=== PATIENT | male | born 2005 | race African-American/Black ===

== ENCOUNTER 2025-06-26 23:02 | Emergency (ER) | payer OTHER ==
[~2025-06-26 23:02] MED LIST: Ketorolac 30 MG/ML SDV IVPUSH ONE; Lactated Ringers 1,000 ML IV ONE
[2025-06-27 00:24] LABS: BASOPHILS PERCENT AUTO 1.2 % (0.0-1.0); EOSINOPHILS PERCENT AUTO 0.3 % (1.0-3.0); LYMPHOCYTES PERCENT AUTO 43.7 % (20.5-50.1); MONOCYTES PERCENT AUTO 11.4 % (2-8); NEUTROPHILS PERCENT AUTO 43.4 % (42.2-75.2); PLATELET COUNT,PLT 232 10^3/uL (150-450); RED BLOOD CELL COUNT 4.92 10^6/uL (4.6-6.2); WHITE BLOOD CELL COUNT,WBC 6.8 10^3/uL (5.0-10.0)
[2025-06-27] MEDS: Ketorolac 30 MG/ML SDV IM ONE (00:25)
[2025-06-27 00:46] LABS: A/G RATIO 1.0; ALANINE AMINOTRANSFERASE,ALT 53 U/L (16-63); ASPARTATE AMNIOTRANSFERASE,AST 58 U/L (15-37); BILIRUBIN TOTAL 0.6 mg/dL (0.2-1.0); BLOOD UREA NITROGEN,BUN 13 mg/dL (7-18); CARBON DIOXIDE,CO2 31 mmol/L (21-32); CHLORIDE,CL 106 mmol/L (98-107); CREATININE 1.11 mg/dL (0.70-1.30); GLUCOSE RANDOM 87 mg/dL (70-99); POTASSIUM,K 4.8 mmol/L (3.5-5.1); PROTEIN TOTAL,TP 8.1 g/dL (6.4-8.2); SODIUM,NA 145 mmol/L (136-145)
[2025-06-27 00:48] LABS: ESTIMATED GFR 98 mL/min (>=60)
[2025-06-27 00:52] LABS: APPEARANCE,URINE CLEAR (CLEAR); GLUCOSE,URINE NEGATIVE (NEGATIVE); OCCULT BLOOD,URINE LARGE (NEGATIVE)
[2025-06-27 01:04] LABS: SQUAMOUS EPITHELIAL CELLS,UR FEW /HPF (NOT SEEN)
[2025-06-27] MEDS: Iopamidol 612 MG/ML 100 ML Bottle IVPUSH ONE (01:15)
[2025-06-27] MEDS: Lactated Ringers 1,000 ML IV ONE (02:00)
== END 2025-06-27 03:24 | disposition home or self-care (01) ==
LOC: DL.ED 23:02
DX: S20.221A Contusion of right back wall of thorax, initial encounter (principal); R31.9 Hematuria, unspecified; V89.2XXA Person injured in unspecified motor-vehicle accident, traffic, initial encounter
CPT/HCPCS: 36415; 71045; 72100; 72170; 74177; 80053; 81001; 83735; 85025; 96360; 96372; 99284; J1885; J7120; Q9967